=== PATIENT | female | born 1955 | race Caucasian/White ===

== ENCOUNTER 2023-04-08 22:25 | Emergency (ER) | payer MEDICARE, BC ==
[~2023-04-08] VITALS: Ht 162.6 cm; Wt 70.0 kg
[2023-04-08 22:35] VITALS: RESP 16; TEMP 98.6
[2023-04-08 22:51] VITALS: O2SAT 97
[2023-04-08] MEDS ORDERED: LORazepam 2 mg/ml vial IV ONE (23:00)
[2023-04-08] MEDS ORDERED: nitroGLYCERIN 0.4mg SUBLingual tab SL PRN (23:00)
[2023-04-08] MEDS ORDERED: normal saline 1000ml 1,000 ML IV ONE (23:00)
[2023-04-08] MEDS ORDERED: glucagon, human recombinant 1mg kit IM ONE (23:00)
[2023-04-08] MEDS ORDERED: diazepam inj 5 MG/ML inj. IV ONE (23:20)
[2023-04-09 00:29] VITALS: BP 92/42; PULSE 100
== END 2023-04-09 00:31 | disposition home or self-care (01) ==
LOC: ER 22:26
DX: T18.128A Food in esophagus causing other injury, initial encounter (principal); W44.F3XA Food entering into or through a natural orifice, initial encounter; Y93.89 Activity, other specified; Y92.89 Other specified places as the place of occurrence of the external cause; Y99.8 Other external cause status
CPT/HCPCS: 71045; 96361; 96372; 96374; 99284; J1610; J3360; J7030